=== PATIENT | male | born 1985 | race Caucasian/White ===

== ENCOUNTER 2021-05-22 09:24 | Emergency (ER) | payer MEDICAID ==
[~2021-05-22] VITALS: Ht 182.9 cm; Wt 90.5 kg
[2021-05-22 09:33] VITALS: BP 127/80
[2021-05-22] MEDS ORDERED: MELO15TA13 PO (13:53)
== END 2021-05-22 15:44 | disposition left against medical advice (07) ==
LOC: ER 09:24
DX: R07.81 Pleurodynia (principal); Z88.8 Allergy status to other drugs, medicaments and biological substances
CPT/HCPCS: 93005; 99283

== ENCOUNTER 2022-09-28 12:54 | Emergency (ER) | payer MEDICAID, OTHER ==
[~2022-09-28] VITALS: Ht 182.9 cm; Wt 88.6 kg
[~2022-09-28 12:54] MED LIST: MELO15TA13 PO
[2022-09-28] MEDS ORDERED: HYDROmorphone inj. 0.5 MG/0.5 ML DISP.SYRIN IV ONE (13:15)
[2022-09-28 13:28] LABS: BASOPHILS % (AUTO) 0.3 % (0-1); EOSINOPHILS # (AUTO) 0.4 X10'3 (0-0.9); EOSINOPHILS % (AUTO) 3.7 % (0-6); HEMATOCRIT 43.4 % (42.0-52.0); HEMOGLOBIN 14.4 g/dl (14.0-17.9); LYMPHOCYTES # (AUTO) 1.7 X10'3 (1.1-4.8); LYMPHOCYTES % (AUTO) 16.1 % (21-51); MEAN CORPUSCULAR HEMOGLOBIN 29.5 PG (27.0-31.0); MEAN CORPUSCULAR HGB CONC 33.3 g/dL (33.0-36.5); MEAN CORPUSCULAR VOLUME 88.8 FL (78-98); MEAN PLATELET VOLUME 7.9 FL (7.4-10.4); MONOCYTES % (AUTO) 9.5 % (2-12); NEUTROPHILS # (AUTO) 7.4 X10'3 (1.8-7.7); NEUTROPHILS % (AUTO) 70.4 % (42-75); PLATELET COUNT 344 X10'3 (140-440); RED BLOOD COUNT 4.89 X10'6 (4.70-6.10); RED CELL DISTRIBUTION WIDTH 13.8 % (11.5-14.5); WHITE BLOOD COUNT 10.5 X10'3 (4.5-11.0)
[2022-09-28 13:47] LABS: ALANINE AMINOTRANSFERASE 17 U/L (12-78); ALBUMIN 3.4 G/DL (3.4-5.0); ALBUMIN/GLOBULIN RATIO 1.1 (1.1-1.5); ALKALINE PHOSPHATASE 76 IU/L (46-116); AMYLASE 75 U/L (25-115); ANION GAP 3 (8-16); ASPARTATE AMINO TRANSFERASE 13 U/L (10-37); BILIRUBIN,TOTAL 0.2 MG/DL (0.1-1.0); BLOOD UREA NITROGEN 10 MG/DL (7-18); CALCIUM 8.4 MG/DL (8.5-10.1); CHLORIDE 106 MMOL/L (99-107); CREATININE 0.91 MG/DL (0.60-1.10); GLUCOSE 100 MG/DL (70-104); LIPASE 179 U/L (73-393); POTASSIUM 4.3 MMOL/L (3.5-5.1); SODIUM 139 MMOL/L (135-145); TOTAL CARBON DIOXIDE 30.4 MMOL/L (24-32); TOTAL PROTEIN 6.5 G/DL (6.4-8.2); eGFR > 90 ML/MIN
[2022-09-28] MEDS ORDERED: iohexol 300mg/ml 100ml inj. ONE (14:48)
[2022-09-28] MEDS ORDERED: normal saline 1000ml 1,000 ML IV STA (15:30)
[2022-09-28 15:47] LABS: CLARITY,URINE CLEAR (Clear); COLOR,URINE YELLOW (Yellow); GLUCOSE, URINE NEGATIVE (Neg); KETONES,URINE NEGATIVE (Neg); LEUKOCYTE ESTERASE ,URINE NEGATIVE (Neg); NITRITES, URINE NEGATIVE (Neg); OCCULT BLOOD,URINE NEGATIVE (Neg); PH,URINE 5.5 (4.8-8.0); PROTEIN,URINE NEGATIVE (Neg); UROBILINOGEN,URINE 0.2 E.U/dL (0.2-1.0)
[2022-09-28 15:50] LABS: UA COLLECTION TYPE CLN CATCH MIDSTREAM
[2022-09-28] MEDS ORDERED: PRED10TA23 PO (16:16)
[2022-09-28] MEDS ORDERED: methylPREDNISolone sod succ 125mg/2ml vial IV ONE (16:20)
[2022-09-28 16:41] VITALS: BP 117/94
== END 2022-09-28 16:49 | disposition home or self-care (01) ==
LOC: ER 12:55
DX: K51.811 Other ulcerative colitis with rectal bleeding (principal); R10.84 Generalized abdominal pain; Z79.899 Other long term (current) drug therapy
CPT/HCPCS: 36415; 74177; 80053; 81003; 82150; 83690; 85025; 96361; 96374; 96375; 99285; J1170; J2930; J3490; J7030; Q9967

== ENCOUNTER → 2023-06-19 | Emergency (ER) | payer MEDICAID ==
[~2023-06-19] VITALS: Ht 182.9 cm; Wt 86.0 kg
[~2023-06-19] MED LIST changes: +CEPH-585 PO; +COLC0.6C3 PO; +IBUP-1984 PO
[2023-06-19 20:46] VITALS: BP 135/85; PULSE 111; TEMP 97.8; O2SAT 98
[2023-06-19 22:20] VITALS: RESP 16
[2023-06-19] MEDS: ketorolac trometh inj. 60 MG/2 ML VIAL IM ONE (22:20)
== END | disposition home or self-care (01) ==
LOC: ER 20:23
DX: M25.571 Pain in right ankle and joints of right foot (principal); M79.89 Other specified soft tissue disorders
CPT/HCPCS: 73610; 96372; 99283; J1885

== ENCOUNTER 2023-09-30 02:18 | Emergency (ER) | payer MEDICAID ==
[~2023-09-30] VITALS: Ht 182.9 cm; Wt 87.3 kg
[~2023-09-30 02:18] MED LIST changes: -CEPH-585 PO; -IBUP-1984 PO
[2023-09-30 02:22] VITALS: TEMP 98.2
[2023-09-30] MEDS: ibuprofen tablet 400 MG TABLET PO ONE (03:23)
[2023-09-30 04:22] VITALS: BP 116/74; PULSE 83; O2SAT 99
[2023-09-30 05:00] VITALS: RESP 16
[2023-09-30] MEDS: HYDROcodone/acetaminophen 10/325mg tab PO ONE (05:00)
== END 2023-09-30 05:39 | disposition left against medical advice (07) ==
LOC: ER 02:18
DX: M25.562 Pain in left knee (principal); Z53.21 Procedure and treatment not carried out due to patient leaving prior to being seen by health care provider
CPT/HCPCS: 73564; A6449